=== PATIENT | female | born 1960 | race Caucasian/White ===

== ENCOUNTER 2024-10-30 07:35 | Outpatient (CLI) | payer OTHER | END 2024-10-30 07:50 | disposition home or self-care (01) | LOC: MRI 07:35 | DX: H05.112 Granuloma of left orbit (principal) | CPT/HCPCS: 70543; Q9965 ==

== ENCOUNTER 2025-01-03 09:44 | Outpatient (CLI) | payer OTHER | END 2025-01-03 14:47 | disposition home or self-care (01) | LOC: MRI 09:44 | DX: C83.31 Diffuse large B-cell lymphoma, lymph nodes of head, face, and neck (principal) | CPT/HCPCS: 70540 ==